=== PATIENT | female | born 1965 | race Caucasian/White ===

== ENCOUNTER → 2016-08-14 16:56 | Outpatient (CLI) | payer BC ==
[2014-11-10 12:30] VITALS: BMI 35.3
[~2016-08-14 16:56] MED LIST: MAXALT MLT10 MG/TAB PO; PROAIR HFA8.5 GM INH; ROBAXIN500 MG PO; TENORMIN25 MG PO; ULTRAM50 MG PO
== END | disposition home or self-care (01) ==
LOC: D.MAMMO 08:00
DX: Z13.1 Encounter for screening for diabetes mellitus (principal)

== ENCOUNTER 2020-06-29 07:10 | Emergency (ER) | payer BC ==
[~2020-06-29] VITALS: Ht 160 cm; Wt 90.9 kg
[2020-06-29 07:22] VITALS: Ht 160 cm; Wt 90.9 kg
[2020-06-29 07:52] LABS: BASOPHILS 0.7 % (0-2); EOSINOPHILS 1.4 % (0-7); HEMATOCRIT 40.4 % (36.0-48.0); HEMOGLOBIN 13.3 g/dL (12-16); IMMATURE GRANULOCYTES 0.4 % (0-5); LYMPHOCYTE ABS# 2.07 10x3/uL (1.18-3.74); LYMPHOCYTES 29.4 % (15-50); MCH 28.4 pg (26.0-34.0); MCHC 32.9 g/dL (31.0-37.0); MCV 86.3 fL (80.0-100.0); MEAN PLATELET VOLUME 9.8 fL (7.4-10.4); MONOCYTES 10.8 % (2-11); NEUTROPHIL ABS# 4.03 10x3/uL (1.56-6.13); NEUTROPHILS 57.3 % (40-80); PLATELET COUNT 211 10x3/uL (130-400); RBC 4.68 10x6/uL (4.00-5.40); RDW 14.2 % (11.5-14.5)
[2020-06-29 08:15] LABS: CALC OSMOLALITY 279 mosm/kg (275-300); CALCIUM 8.7 mg/dL (8.5-10.1); CARBON DIOXIDE 26.7 mmol/L (21.0-32.0); CHLORIDE - SERUM 103 mmol/L (98-107); CREATININE - SERUM 0.9 mg/dL (0.6-1.3); GLUCOSE 118 mg/dL (74-106); POTASSIUM - SERUM 3.9 mmol/L (3.5-5.1); SODIUM 139 mmol/L (136-145); UREA NITROGEN 16 mg/dL (7-18); eGFR NON AFRICAN AMERICAN 70 mL/min (90-120)
[2020-06-29 08:28] LABS: ALBUMIN 3.3 g/dL (3.4-5.0); ALKALINE PHOSPHATASE 72 U/L (30-120); ALT (SGPT) 36 U/L (10-68); BILIRUBIN - TOTAL 0.44 mg/dL (0.2-1.3); CKMB 0.2 U/L (0.0-3.6); CREATINE KINASE 45 UL (21-215); PRO BNP 486 pg/mL (0-125); TROPONIN-I < 0.017 ng/mL (0.000-0.060)
[2020-06-29 08:36] LABS: APTT 27.4 SECONDS (22.8-39.4); INR 1.1 (0.85-1.17); PROTIME 13.2 SECONDS (11.6-15.0)
[2020-06-29 09:09] LABS: D-DIMER-QUANTITATIVE 0.27 ug/mLFEU (0.20-0.54)
[2020-06-29] MEDS ORDERED: HYDROCHLOROTH12.5 M1 PO (09:24)
[2020-06-29 10:07] VITALS: BP 138/68
== END 2020-06-29 09:44 | disposition home or self-care (01) ==
LOC: D.ER 07:10
PROVIDERS: Emergency Medicine
DX: R06.09 Other forms of dyspnea (principal); I10 Essential (primary) hypertension